=== PATIENT | female | born 1985 | race Caucasian/White ===

== ENCOUNTER 2019-04-20 21:37 | Emergency (ER) | payer OTHER ==
[2019-04-21] MEDS ORDERED: IBUPROFEN 600 MG TABLET PO ONE (00:07)
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
[2019-04-21] MEDS ORDERED: HYDROCODONE/ACETAMINOPHEN 5-325 MG TABLET PO ONE (00:32)
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
[2019-04-21] MEDS ORDERED: METHOCARBAMOL 500 MG TABLET PO ONE (02:15)
[2019-04-21] MEDS ORDERED: HYDROCODONE/ACETAMINOPHEN 5-325 MG (6 TAB/ER DISP) PO PRN (02:15)
[2019-04-21] MEDS ORDERED: DIPH/PERTUSS(ACELL)/TETANUS VAC/PF 0.5 ML SYR (>=10YO) IM ONE (02:18)
[2019-04-21 03:12] VITALS: BP 110/68
== END 2019-04-21 03:13 | disposition home or self-care (01) ==
LOC: ER 21:37
DX: S09.90XA Unspecified injury of head, initial encounter (principal); S80.11XA Contusion of right lower leg, initial encounter; R51 Headache; M79.604 Pain in right leg; V89.2XXA Person injured in unspecified motor-vehicle accident, traffic, initial encounter
CPT/HCPCS: 90471; 90715; 99283

== ENCOUNTER 2019-11-10 17:06 | Emergency (ER) | payer OTHER ==
--- NOTE | 2019-11-10 17:46 | ER Document Report ---
ED Medical Screen (RME) - General Chief Complaint: Vaginal Discharge Stated Complaint: VAGINAL DISCHARGE Time Seen by Provider: 11/10/19 17:30 Mode of Arrival: Ambulatory Information source: Patient Notes: Patient is an otherwise healthy 33-year-old female presenting with chief complaint of possible fecal matter discharging from her vagina. She states that she started prior to arrival. She denies any recent surgeries. She has a history of a tubal ligation and 2 C-sections. She has also had 2 vaginal deliveries. Exam deferred until patient is seen in the back. I did walk back and speak with ONE of the attending physicians who recommended doing a CT abdomen pelvis with rectal and IV contrast. Orders placed. I have greeted and performed a rapid initial assessment of this patient. A comprehensive ED assessment and evaluation of the patient, analysis of test results and completion of the medical decision making process will be conducted by additional ED providers. I have specifically instructed the patient or family members with the patient to immediately return to any nursing staff should anything change in the patient's condition or with their chief complaint. TRAVEL OUTSIDE OF THE [place] IN LAST 30 DAYS: No - Related Data Allergies/Adverse Reactions: No Known Allergies Allergy (Verified 03/24/19 18:19) Past Medical History Renal/ Medical History: Denies: Hx Peritoneal Dialysis Past Surgical History: Reports: Hx Appendectomy, Hx Section, Hx Orthopedic Surgery - rt hand surg Physical Exam - Vital signs Vitals: Temp Pulse Resp BP Pulse Ox 98.2 F 74 16 103/67 97 11/10/19 17:10 11/10/19 17:10 11/10/19 17:10 11/10/19 17:10 11/10/19 17:10 Course - Vital Signs Vital signs: Temp Pulse Resp BP Pulse Ox 98.2 F 74 16 103/67 97 11/10/19 17:10 11/10/19 17:10 11/10/19 17:10 11/10/19 17:10 11/10/19 17:10
[2019-11-10 18:18] LABS: ABSOLUTE EOSINOPHILS # (AUTO) 0.1 10^3/uL (0.0-0.6); ABSOLUTE LYMPHOCYTES (AUTO) 3.1 10^3/uL (0.5-4.7); ABSOLUTE MONOCYTES (AUTO) 0.5 10^3/uL (0.1-1.4); BASOPHILS % (AUTO) 0.5 % (0-2); EOSINOPHILS % (AUTO) 1.4 % (0-6); HEMATOCRIT 37.4 % (36.0-47.0); HEMOGLOBIN 12.6 g/dL (12.0-15.5); LYMPHOCYTES % (AUTO) 35.2 % (13-45); MEAN CORPUSCULAR HEMOGLOBIN 30.2 pg (27.0-33.4); MEAN CORPUSCULAR HGB CONC 33.7 g/dL (32.0-36.0); MEAN CORPUSCULAR VOLUME 90 fl (80-97); MONOCYTES % (AUTO) 5.6 % (3-13); PLATELET COUNT 314 10^3/uL (150-450); RED BLOOD COUNT 4.18 10^6/uL (3.72-5.28); RED CELL DISTRIBUTION WIDTH 12.9 % (11.5-14.0); SEGMENTED NEUTROPHILS % (AUTO) 57.3 % (42-78); TOTAL CELLS COUNTED % (AUTO) 100 %; WHITE BLOOD COUNT 8.7 10^3/uL (4.0-10.5)
[2019-11-10 18:35] LABS: ALBUMIN 4.3 g/dL (3.5-5.0); ALKALINE PHOSPHATASE 45 U/L (38-126); ANION GAP 9 (5-19); ASPARTATE AMINO TRANSFERASE 31 U/L (14-36); BILIRUBIN,DIRECT 0.2 mg/dL (0.0-0.4); BILIRUBIN,TOTAL 0.3 mg/dL (0.2-1.3); BLOOD UREA NITROGEN 9 mg/dL (7-20); CALCIUM 9.3 mg/dL (8.4-10.2); CARBON DIOXIDE 26 mmol/L (22-30); CHLORIDE 104 mmol/L (98-107); GLUCOSE 111 mg/dL (75-110); POTASSIUM 4.1 mmol/L (3.6-5.0); TOTAL PROTEIN 7.5 g/dL (6.3-8.2)
[2019-11-10] MEDS ORDERED: DIPHENHYDRAMINE HCL 50 MG/ML VIAL IV ONE (20:27)
--- NOTE | 2019-11-10 20:41 | ER Document Report ---
ED General - General Chief Complaint: Vaginal Discharge Stated Complaint: VAGINAL DISCHARGE Time Seen by Provider: 11/10/19 17:30 Mode of Arrival: Ambulatory TRAVEL OUTSIDE OF THE [place] IN LAST 30 DAYS: No - HPI Notes: Patient is a 33-year-old female who presents complaining of noticing vaginal discharge that began this afternoon suddenly. Patient states that she thought it was her menstrual cycle, but when she looked at the material it was stool colored and very foul-smelling. Patient states that it does continue to drain at this time. She has never had this before. Patient does report having 2 C- sections as well as 2 vaginal births in the past and an appendectomy. She otherwise has no other significant past medical history. She is able to eat and drink without difficulty. She is urinating normally. Denies any headache, fever, neck pain, URI, sore throat, chest pain, palpitations, syncope, cough, shortness of breath, wheeze, dyspnea, abdominal pain, nausea/vomiting, urinary retention, dysuria, hematuria, back pain, or rash. - Related Data Allergies/Adverse Reactions: No Known Allergies Allergy (Verified 03/24/19 18:19) Past Medical History - General Information source: Patient - Social History Smoking Status: Never Smoker Family History: Reviewed & Not Pertinent Patient has suicidal ideation: No Patient has homicidal ideation: No Renal/ Medical History: Denies: Hx Peritoneal Dialysis Past Surgical History: Reports: Hx Appendectomy, Hx Section, Hx Orthopedic Surgery - rt hand surg Review of Systems - Review of Systems -: Yes All other systems reviewed and negative Physical Exam - Vital signs Vitals: Temp Pulse Resp BP Pulse Ox 98.2 F 74 16 103/67 97 11/10/19 17:10 11/10/19 17:10 11/10/19 17:10 11/10/19 17:10 11/10/19 17:10 - Notes Notes: PHYSICAL EXAMINATION: GENERAL: Well-appearing, well-nourished and in no acute distress. LUNGS: Breath sounds clear to auscultation bilaterally and equal. No wheezes rales or rhonchi. HEART: Regular rate and rhythm without murmurs, rubs, gallops. ABDOMEN: Soft, nontender, nondistended abdomen. No guarding, no rebound. Normal bowel sounds present. No CVA tenderness bilaterally. Musculoskeletal: FROM to passive/active. Strength 5+/5. Extremities: No cyanosis, clubbing, or edema b/l. Peripheral pulses 2+. Capillary refill less than 3 seconds. NEUROLOGICAL: Normal speech, normal gait. PSYCH: Normal mood, normal affect. SKIN: Warm, Dry, normal turgor, no rashes or lesions noted. Course - Re-evaluation Re-evalutation: 11/10/19 23:21 Patient is an afebrile, well-hydrated, 33-year-old female who presents with a suspected anovaginal fistula. Vitals are except without significant tachycardia, tachypnea, hypoxia. PE is otherwise unremarkable. Patient is nontoxic-appearing and is tolerating p.o. without difficulty. CT scan unremarkable. It was a limited study with the dense rectal dye utilized. On pelvic exam, there is brown stool noted. Her abdomen is otherwise soft and nontender. She has not reported any incontinence issues in the past. I did speak with [facility], Dr. Ruiz, she would like the patient to call their office in the morning so they can get her scheduled as they will need to set up a referral to another area such as [facility] for further evaluation and management. Low suspicion/risk for acute appendicitis, bowel obstruction, acute cholecystitis, acute cholangitis, perforated diverticulitis, incarcerated hernia, pancreatitis, perforated ulcer, peritonitis, sepsis, pelvic inflammatory disease, ectopic , tubo-ovarian abscess, ovarian torsion, or other systemic emergent condition at this time. Patient is aware that her condition can change from initial presentation and she needs to monitor symptoms closely and seek medical attention if any acute changes. Conservative measures otherwise for symptoms. Return to the ED with any worsening/concerning symptoms otherwise as reviewed in discharge. Patient is in agreement. - Vital Signs Vital signs: Temp Pulse Resp BP Pulse Ox 98.2 F 74 16 103/67 97 11/10/19 17:10 11/10/19 17:10 11/10/19 17:10 11/10/19 17:10 11/10/19 17:10 - Laboratory Result Diagrams: 11/10/19 17:45 11/10/19 17:45 Laboratory results interpreted by me: 11/10/19 17:45 Glucose 111 H Discharge - Discharge Clinical Impression: Colovaginal fistula Condition: Stable Disposition: HOME, SELF-CARE Additional Instructions: You are to call the women[facility] clinic tomorrow between 8 AM and 8:15 AM. The [facility] [employer] on-call, Dr. Ruiz, will also be calling the clinic so they can try to get you in for evaluation and probable referral to another facility. Maintain fluid intake Proper hygienic technique Keep the skin clean Return to the ED with any development of CHOI/fever, trouble with vision, eye redness, worsening pain, urethral discharge, urinary retention, blood in the urine, flank pain, abdominal pain, n/v, Chest Pain, shortness of breath, joint pains, trouble breathing, or any other worsening/concerning symptoms as needed otherwise. Referrals: [facility] [Provider Group] - Follow up tomorrow
[2019-11-10 21:00] LABS: AMORPHOUS SEDIMENT,URINE TRACE /HPF; APPEARANCE,URINE CLOUDY; BILIRUBIN,URINE NEGATIVE (NEGATIVE); COLOR,URINE YELLOW; GLUCOSE, URINE NEGATIVE (NEGATIVE); KETONES,URINE NEGATIVE (NEGATIVE); PROTEIN,URINE NEGATIVE (NEGATIVE); URINE SPECIFIC GRAVITY 1.013; UROBILINOGEN,URINE NEGATIVE mg/dL (<2.0)
--- NOTE | 2019-11-10 21:54 | RADIOLOGY REPORT (SQ) ---
EXAM DESCRIPTION: CLINICAL HISTORY: 33 years Female RECTAL CONTRAST POSSIBLE VAGINAL/RECTAL FISTULA COMPARISON: None TECHNIQUE: Axial images with IV contrast. Rectal contrast administered. This exam was performed according to our departmental dose-optimization program, which includes automated exposure control, adjustment of the mA and/or kV according to patient size and/or use of iterative reconstruction technique.. FINDINGS: Technically very limited study due to usage of very dense rectal contrast causing severe artifact. Lung bases, liver, biliary system, spleen, pancreas, adrenal glands, aorta and para-aortic regions are unremarkable.. Kidneys without obvious acute findings. 11 mm cyst right kidney. Suspected moderate distention of the stomach. No obvious abnormality of small bowel. Colonic loops appear unremarkable when evaluated with bone windows. CT of the pelvis demonstrates unremarkable rectosigmoid colon. Urinary bladder unremarkable. Anteflexed uterus. No obvious rectovaginal fistula. No obvious mass or free fluid. IMPRESSION: 1. Very limited study due to usage of very dense rectal contrast causing artifact. 2. No obvious rectovaginal fistula. 3. No obvious acute findings in the abdomen and pelvis.
[2019-11-10 23:37] VITALS: BP 104/61
== END 2019-11-10 23:41 | disposition home or self-care (01) ==
LOC: ER 17:06
DX: N89.8 Other specified noninflammatory disorders of vagina (principal); K60.5 Anorectal fistula
CPT/HCPCS: 99284; 96374; 36415; 85025; 81025; 80053; 81001; 74177; J1200